=== PATIENT | male | born 1985 | race Hispanic/Latino ===

== ENCOUNTER 2020-04-05 16:03 | Emergency (ER) | payer SELFPAY ==
--- NOTE | 2020-04-06 03:39 | Emergency Department Report ---
ED Alcohol HPI - General Chief Complaint: Alcohol Stated Complaint: DETOX Time Seen by Provider: 04/06/20 03:26 Source: patient Mode of arrival: Ambulatory Limitations: No Limitations - History of Present Illness Initial Comments: Patient is a 34-year-old male that presents emergency room for alcohol detox medical clearance. Patient states he is already been in contact with sober [facility] [place] and they sent him here for clearance. Patient denies any physical complaints. Patient states his last drink was 4 days ago. Patient patient denies tremors. Patient denies fever. Patient denies chest pain shortness of breath. Patient denies fever. Patient complains of skin infection on the right lower extremity. Patient states he is having redness. Patient states the pain is a 4 out of 10. Patient states he had a small acne on his right leg that he picked and then it became infected. Patient states it started this morning. Patient denies fever and chills. Patient denies discharge. Patient denies recent travel. Patient denies recent international travel. Patient denies exposure to the novel coronavirus. Patient denies sick contacts. Patient denies fever and chills. Patient denies cough. Patient denies diarrhea. Patient denies coming in contact with anybody with symptoms of the novel coronavirus. Complaint: desires rehab, medical clearance for det -: days(s) Chronic Alcohol Use: Yes Previous Visits for Alcohol Intoxication?: No Recent Trauma: No Associated Symptoms: denies other symptoms. denies: nausea, vomiting, syncope, diaphoresis, tremors, abdominal pain, hematemesis, melena, depression, suicidality Treatments Prior to Arrival: none - Related Data Previous Rx's Medication Instructions Recorded Last Taken Type Doxycycline Hyclate [Doxycycline 100 mg PO Q12HR 14 Days #28 tab 04/06/20 Unknown Rx Hyclate TAB] Allergies Allergy/AdvReac Type Severity Reaction Status Date / Time No Known Allergies Allergy Verified 04/05/20 16:08 ED Review of Systems ROS: Stated complaint: DETOX Other details as noted in HPI Constitutional: denies: chills, fever Eyes: denies: eye pain, eye discharge, vision change ENT: denies: ear pain, throat pain Respiratory: denies: cough, shortness of breath, wheezing Cardiovascular: denies: chest pain, palpitations Endocrine: no symptoms reported Gastrointestinal: denies: abdominal pain, nausea, diarrhea Genitourinary: denies: urgency, dysuria Musculoskeletal: denies: back pain, joint swelling, arthralgia Skin: as per HPI. denies: rash, lesions Neurological: denies: headache, weakness, paresthesias Psychiatric: denies: anxiety, depression Hematological/Lymphatic: denies: easy bleeding, easy bruising ED Past Medical Hx - Past Medical History Previous Medical History?: Yes Hx Psychiatric Treatment: Yes (alcohol) - Surgical History Past Surgical History?: No - Family History Family history: no significant - Social History Smoking Status: Never Smoker Substance Use Type: Alcohol - Medications Home Medications: Home Medications Medication Instructions Recorded Confirmed Last Taken Type Doxycycline Hyclate [Doxycycline 100 mg PO Q12HR 14 Days #28 tab 04/06/20 Unknown Rx Hyclate TAB] ED Physical Exam - General Limitations: No Limitations General appearance: alert, in no apparent distress - Head Head exam: Present: atraumatic, normocephalic - Eye Eye exam: Present: normal appearance - ENT ENT exam: Present: mucous membranes moist - Neck Neck exam: Present: normal inspection - Respiratory Respiratory exam: Present: normal lung sounds bilaterally. Absent: respiratory distress, wheezes, rales - Cardiovascular Cardiovascular Exam: Present: regular rate, normal rhythm. Absent: systolic murmur, diastolic murmur, rubs, gallop - GI/Abdominal GI/Abdominal exam: Present: soft, normal bowel sounds. Absent: distended, tenderness, guarding - Rectal Rectal exam: Present: deferred - Extremities Exam Extremities exam: Present: normal inspection (Central right lower extremity cellulitis.), full ROM, normal capillary refill. Absent: pedal edema, joint swelling, calf tenderness - Back Exam Back exam: Present: normal inspection - Neurological Exam Neurological exam: Present: alert, oriented X3 - Psychiatric Psychiatric exam: Present: normal affect, normal mood - Skin Skin exam: Present: warm, dry, normal color, other (Right lower extremity, superior right knee/anterior thigh cellulitis noted. Red area noted to with streaking. Area is nonfluctuant, no abscess noted.). Absent: rash ED Course Vital Signs 04/05/20 04/06/20 16:10 04:46 Temperature 98.4 F 98.9 F Pulse Rate 115 H 91 H Respiratory 16 12 Rate Blood Pressure 113/84 130/89 [Left] O2 Sat by Pulse 97 98 Oximetry - Reevaluation(s) Reevaluation #1: Patient will be given clindamycin injection prior to discharge. Patient is medically cleared to go to his alcohol rehab center. I discussed all results and clinical findings with patient. I discussed plan of care with patient. Patient agrees with plan of care. Patient is stable for discharge. Patient will be discharged home. Patient given discharge instructions. Patient voiced understanding of discharge instructions. 04/06/20 05:43 ED Medical Decision Making - Lab Data Result diagrams: 04/06/20 03:43 04/06/20 03:43 - Medical Decision Making Patient is a 34-year-old male that presents emergency room for medical clearance to go to alcohol rehab. Patient desires to go to detox. Patient had labs done for medical clearance and they were essentially unremarkable. Patient only complaint was a skin infection of the right lower extremity. Patient given a injection of clindamycin and will be given oral antibiotics at discharge. Patient will be given his discharge paperwork to go to his rehab facility, [facility]. he is stable for discharge. - Differential Diagnosis Medical clearance, alcoholism, desire detox, cellulitis Critical care attestation.: If time is entered above; I have spent that time in minutes in the direct care of this critically ill patient, excluding procedure time. ED Disposition Clinical Impression: Medical clearance for psychiatric admission, Desire for detoxification, Alcoholism Cellulitis Qualifiers: Site of cellulitis: extremity Site of cellulitis of extremity: lower extremity Laterality: right Qualified Code(s): L03.115 - Cellulitis of right lower limb Disposition: DC-01 TO HOME OR SELFCARE Is pt being admited?: No Does the pt Need Aspirin: No Condition: Stable Instructions: At-Risk Alcohol Use (ED), Abuse of Alcohol (ED), Alcohol Withdrawal (ED), Cellulitis (ED) Additional Instructions: Patient to follow-up with primary care in 2 to 3 days. Patient to be discharged from the ER and go directly to his rehabilitation center. Patient to rest. Patient to increase water. Patient to take Tylenol or ibuprofen as needed for pain. Patient to take meds as directed. Patient to return to the ER if condition worsens, changes or new symptoms arise. Prescriptions: Doxycycline Hyclate [Doxycycline Hyclate TAB] 100 mg PO Q12HR 14 Days #28 tab Referrals: PRIMARY CARE, [Primary Care Provider] - 2-3 Days Time of Disposition: 05:46
[2020-04-06 03:57] LABS: Basophils # (Auto) 0.1 K/mm3 (0.0-0.1); Basophils % (Auto) 0.5 % (0.0-1.8); Eosinophils # (Auto) 0.1 K/mm3 (0.0-0.4); Eosinophils % (Auto) 0.8 % (0.0-4.3); Hematocrit 44.8 % (35.5-45.6); Lymphocytes # (Auto) 2.3 K/mm3 (1.2-5.4); Lymphocytes % (Auto) 20.8 % (13.4-35.0); Mean Corpuscular HGB Conc 34 % (32-34); Mean Corpuscular Volume 87 fl (84-94); Monocytes # (Auto) 1.7 K/mm3 (0.0-0.8); Monocytes % (Auto) 15.7 % (0.0-7.3); Platelet Count 228 K/mm3 (140-440); Red Blood Count 5.17 M/mm3 (3.65-5.03); Red Cell Distribution Width 12.3 % (13.2-15.2)
[2020-04-06 04:21] LABS: Alanine Aminotransferase 34 units/L (7-56); Albumin 4.4 g/dL (3.9-5); BUN/Creatinine Ratio 6; Blood Urea Nitrogen 5 mg/dL (9-20); Hemolysis Index 7
[2020-04-06 05:29] LABS: Bilirubin,Urine NEG (Negative); Blood,Urine NEG (Negative); Color,Urine Yellow (Yellow); Mucus,Urine FEW /HPF; Protein,Urine <15 mg/dL mg/dL (Negative); Urobilinogen,Urine < 2.0 mg/dL (<2.0)
[2020-04-06 05:41] LABS: Amphetamine Screen,Urine Negative; Cannabinoid Screen,Urine Negative; Cocaine Screen,Urine Negative; Methadone Screen,Urine Negative; Opiate Screen,Urine Negative
[2020-04-06] MEDS ORDERED: CLINDAMYCIN 150 MG/ML VIAL 6 ML IM ONE (05:42)
[2020-04-06 06:01] LABS: Benzodiazepines Screen,Urine Positive
[2020-04-06 06:49] VITALS: BP 117/78
== END 2020-04-06 09:20 | disposition home or self-care (01) ==
LOC: ED 16:03
DX: L03.115 Cellulitis of right lower limb (principal); F10.129 Alcohol abuse with intoxication, unspecified; Z04.6 Encounter for general psychiatric examination, requested by authority; Z79.899 Other long term (current) drug therapy
CPT/HCPCS: 36415; 80053; 80307; 80320; 81001; 85025; 96372; G0480

== ENCOUNTER 2022-02-22 10:48 | Emergency (ER) | payer SELFPAY ==
--- NOTE | 2022-02-22 13:03 | Emergency Department Report ---
ED General Adult HPI - General Chief complaint: Medical Clearance Stated complaint: MEDICAL CLEARANCE Time Seen by Provider: 02/22/22 12:26 Source: patient, RN notes reviewed, old records reviewed Mode of arrival: Ambulatory Limitations: No Limitations - History of Present Illness Initial comments: The patient was evaluated in the emergency department for symptoms described in the history of present illness. He/she was evaluated in the context of the global COVID-19 pandemic, which necessitated consideration that the patient might be at risk for infection with the virus that causes COVID-19. Institutional protocols and algorithms that pertain to the evaluation of patients at risk for COVID-19 are in a state of rapid change based on information released by regulatory bodies including the CDC and federal and state organizations. These policies and algorithms were followed during the patient's care in the emergency department. Please note that these policies, procedures and recommendations changed on a rapid basis. This patient is a 36-year-old gentleman who presents to the department today with a request for medical clearance for outpatient detox. He reports that he is depressed. He is not homicidal or suicidal. He reports that he is hungry. He denies physical pain. He denies intentional overdose and hallucinations. -: Gradual Consistency: constant Improves with: none Worsens with: none - Related Data Previous Rx's Medication Instructions Recorded Last Taken Type Multivitamin with Folic Acid [Cvs 400 mcg PO QDAY #30 tablet 02/22/22 Unknown Rx One Daily Essential Tablet] Ondansetron [Zofran Odt] 4 mg PO Q8HR PRN #20 tab.rapdis 02/22/22 Unknown Rx Allergies Allergy/AdvReac Type Severity Reaction Status Date / Time No Known Allergies Allergy Verified 04/05/20 16:08 ED Review of Systems ROS: Stated complaint: MEDICAL CLEARANCE Other details as noted in HPI Comment: All other systems reviewed and negative Psychiatric: anxiety, depression. denies: auditory hallucinations, visual hallucinations, homicidal thoughts, suicidal thoughts ED Past Medical Hx - Past Medical History Hx Psychiatric Treatment: Yes (alcohol) - Social History Smoking Status: Never Smoker Substance Use Type: Alcohol - Medications Home Medications: Home Medications Medication Instructions Recorded Confirmed Last Taken Type Multivitamin with Folic Acid [Cvs 400 mcg PO QDAY #30 tablet 02/22/22 Unknown Rx One Daily Essential Tablet] Ondansetron [Zofran Odt] 4 mg PO Q8HR PRN #20 tab.rapdis 02/22/22 Unknown Rx ED Physical Exam - General Limitations: No Limitations General appearance: alert, anxious - Head Head exam: Present: atraumatic, normocephalic - Eye Eye exam: Present: normal appearance, EOMI. Absent: nystagmus - ENT ENT exam: Present: normal exam, normal orophraynx, mucous membranes moist, normal external ear exam - Neck Neck exam: Present: normal inspection, full ROM. Absent: tenderness, meningismus - Respiratory Respiratory exam: Present: normal lung sounds bilaterally. Absent: respiratory distress, wheezes, rales, rhonchi, stridor, decreased breath sounds - Cardiovascular Cardiovascular Exam: Present: regular rate, normal rhythm, normal heart sounds. Absent: bradycardia, tachycardia, irregular rhythm, systolic murmur, diastolic murmur, rubs, gallop - GI/Abdominal GI/Abdominal exam: Present: soft. Absent: distended, tenderness, guarding, rebound, rigid, pulsatile mass - Rectal Rectal exam: Present: deferred - Extremities Exam Extremities exam: Present: normal inspection, full ROM, other (2+ pulses noted in the bilateral upper and lower extremities. There is no palpable cord. negative Homans sign. Muscular compartments are soft. The pelvis is stable.). Absent: pedal edema, calf tenderness - Back Exam Back exam: Present: normal inspection, full ROM. Absent: tenderness, CVA tenderness (R), CVA tenderness (L), paraspinal tenderness, vertebral tenderness - Neurological Exam Neurological exam: Present: alert, oriented X3, normal gait, other (No facial droop. Tongue midline. Extraocular movements intact bilaterally. Facial sensation intact to light touch in V1, V2, V3 distribution bilaterally. 5 and a 5 strength in 4 extremities. Sensation intact to light touch in 4 extremities.). Absent: motor sensory deficit - Psychiatric Psychiatric exam: Present: anxious. Absent: homicidal ideation, suicidal ideation - Skin Skin exam: Present: warm, dry, intact, normal color. Absent: rash ED Course Vital Signs 02/22/22 02/22/22 10:59 12:29 Temperature 98.3 F Pulse Rate 67 81 Respiratory 16 Rate Blood Pressure 134/84 130/92 [Left] O2 Sat by Pulse 97 99 Oximetry - Reevaluation(s) Reevaluation #1: 02/22/22 13:05 Differential diagnosis, including but not limited to: Encounter for medical screening examination Assessment and plan: 36-year-old gentleman, who is cooperative, eating food at this time, in no acute distress, presenting to the department today with a request for medical clearance. He is clinically sober, has a GCS of 15, and does not meet criteria for 1013 hold or involuntary confinement. He is eating a meal at this time, and in no acute distress. He does report that he is looking to detox from a number of things, including Percocet. Check CBC, CMP, Tylenol and aspirin level. Yoon luke. Discussed plan of care with patient. He is agreeable to the plan of care. Reevaluation #2: 02/22/22 13:37 Laboratory studies unremarkable. Patient resting comfortably in stretcher. May be discharged to follow-up as an outpatient. Does not appear to have an emergent medical condition present today. ED Medical Decision Making - Lab Data Result diagrams: 02/22/22 12:46 02/22/22 12:46 Vital Signs 02/22/22 02/22/22 10:59 12:29 Temperature 98.3 F Pulse Rate 67 81 Respiratory 16 Rate Blood Pressure 134/84 130/92 [Left] O2 Sat by Pulse 97 99 Oximetry Lab Results 02/22/22 02/22/22 02/22/22 Range/Units 12:46 12:46 12:46 WBC 6.4 (4.5-11.0) K/mm3 RBC 5.47 H (3.65-5.03) M/mm3 Hgb 15.3 H (11.8-15.2) gm/dl Hct 45.6 (35.5-45.6) % MCV 83 L (84-94) fl MCH 28 (28-32) pg MCHC 34 (32-34) % RDW 12.1 L (13.2-15.2) % Plt Count 204 (140-440) K/mm3 Sodium 141 (137-145) mmol/L Potassium 4.0 (3.6-5.0) mmol/L Chloride 102.0 (98-107) mmol/L Carbon Dioxide 29 (22-30) mmol/L Anion Gap 14 mmol/L BUN 15 (9-20) mg/dL Creatinine 0.8 (0.8-1.3) mg/dL Estimated GFR > 60 ml/min BUN/Creatinine Ratio 19 % Glucose 88 (75-100) mg/dL Calcium 9.3 (8.4-10.2) mg/dL Total Bilirubin 1.80 H (0.1-1.2) mg/dL AST 24 (5-40) units/L ALT 13 (7-56) units/L Alkaline Phosphatase 80 (35-129) units/L Total Protein 7.0 (6.3-8.2) g/dL Albumin 4.7 (3.9-5) g/dL Albumin/Globulin Ratio 2.0 % Salicylates < 0.3 L (2.8-20.0) mg/dL Acetaminophen (10.0-30.0) ug/mL Plasma/Serum Alcohol (0-0.07) % 02/22/22 02/22/22 Range/Units 12:46 12:46 WBC (4.5-11.0) K/mm3 RBC (3.65-5.03) M/mm3 Hgb (11.8-15.2) gm/dl Hct (35.5-45.6) % MCV (84-94) fl MCH (28-32) pg MCHC (32-34) % RDW (13.2-15.2) % Plt Count (140-440) K/mm3 Sodium (137-145) mmol/L Potassium (3.6-5.0) mmol/L Chloride (98-107) mmol/L Carbon Dioxide (22-30) mmol/L Anion Gap mmol/L BUN (9-20) mg/dL Creatinine (0.8-1.3) mg/dL Estimated GFR ml/min BUN/Creatinine Ratio % Glucose (75-100) mg/dL Calcium (8.4-10.2) mg/dL Total Bilirubin (0.1-1.2) mg/dL AST (5-40) units/L ALT (7-56) units/L Alkaline Phosphatase (35-129) units/L Total Protein (6.3-8.2) g/dL Albumin (3.9-5) g/dL Albumin/Globulin Ratio % Salicylates (2.8-20.0) mg/dL Acetaminophen 5.0 L (10.0-30.0) ug/mL Plasma/Serum Alcohol < 0.01 (0-0.07) % Critical care attestation.: If time is entered above; I have spent that time in minutes in the direct care of this critically ill patient, excluding procedure time. ED Disposition Clinical Impression: Medical clearance for psychiatric admission, Encounter for medical screening examination Disposition: HOME / SELF CARE / HOMELESS Is pt being admited?: No Does the pt Need Aspirin: No Condition: Good Additional Instructions: Please avoid consumption of alcohol, tobacco and smoke products. Please follow- up with an outpatient primary care doctor within the next month. Avoid consumption of opioids, Percocet and narcotics. Take the multivitamin as directed, advance diet as tolerated, and take the nausea medication as directed. The patient is not found to have an emergent medical condition today in the emergency room. The patient may follow-up with an outpatient primary care provider as directed. Please return to the emergency room right away with new pain, worsened pain, valeria ration of pain, projectile vomiting, change in mental status, confusion, inability tolerate liquid feeds, new, worsened or different symptoms not present on the initial emergency room evaluation Prescriptions: Multivitamin with Folic Acid [Cvs One Daily Essential Tablet] 400 mcg PO QDAY #30 tablet Ondansetron [Zofran Odt] 4 mg PO Q8HR PRN #20 tab.rapdis PRN Reason: Nausea Referrals: [facility] [Outside] - 3-5 Days [facility] [Outside] - 3-5 Days
[2022-02-22 13:07] LABS: Hematocrit 45.6 % (35.5-45.6); Hemoglobin 15.3 gm/dl (11.8-15.2); Mean Corpuscular HGB Conc 34 % (32-34); Mean Corpuscular Volume 83 fl (84-94); Platelet Count 204 K/mm3 (140-440); Red Blood Count 5.47 M/mm3 (3.65-5.03); Red Cell Distribution Width 12.1 % (13.2-15.2)
[2022-02-22 13:30] LABS: Alanine Aminotransferase 13 units/L (7-56); Albumin 4.7 g/dL (3.9-5); BUN/Creatinine Ratio 19; Blood Urea Nitrogen 15 mg/dL (9-20); Calcium 9.3 mg/dL (8.4-10.2); Hemolysis Index 15
[2022-02-22 14:16] VITALS: BP 112/77
== END 2022-02-22 14:16 | disposition home or self-care (01) ==
LOC: ED 10:48
DX: Z13.30 Encounter for screening examination for mental health and behavioral disorders, unspecified (principal); Z79.899 Other long term (current) drug therapy
CPT/HCPCS: 36415; 80053; 80320; 85027; 99283; G0480

== ENCOUNTER 2022-05-12 21:09 | Emergency (ER) | payer SELFPAY ==
--- NOTE | 2022-05-13 01:15 | Emergency Department Report ---
ED Psych HPI - General Chief Complaint: Psych Stated Complaint: SI Time Seen by Provider: 05/13/22 01:09 Source: patient, EMS Mode of arrival: Ambulatory - History of Present Illness Initial Comments: 36-year-old male with a history of bipolar and schizophrenia who now presents w ith suicidal ideation saying he does not feel any reason to be alive. When asked specifically he did not have a solid plan. No other modifying or associated factors reported. MD Complaint: suicidal ideation - Related Data Previous Rx's Medication Instructions Recorded Last Taken Type Multivitamin with Folic Acid [Cvs 400 mcg PO QDAY #30 tablet 02/22/22 Unknown Rx One Daily Essential Tablet] Ondansetron [Zofran Odt] 4 mg PO Q8HR PRN #20 tab.rapdis 02/22/22 Unknown Rx Allergies Allergy/AdvReac Type Severity Reaction Status Date / Time No Known Allergies Allergy Verified 04/05/20 16:08 ED Review of Systems ROS: Stated complaint: SI Other details as noted in HPI Comment: All other systems reviewed and negative Psychiatric: suicidal thoughts ED Past Medical Hx - Past Medical History Previous Medical History?: Yes Hx Hypertension: Yes Hx Psychiatric Treatment: Yes (alcohol, depression, anxiety) - Surgical History Past Surgical History?: No - Social History Smoking Status: Current Every Day Smoker Substance Use Type: Alcohol, Methamphetamines - Medications Home Medications: Home Medications Medication Instructions Recorded Confirmed Last Taken Type Multivitamin with Folic Acid [Cvs 400 mcg PO QDAY #30 tablet 02/22/22 Unknown Rx One Daily Essential Tablet] Ondansetron [Zofran Odt] 4 mg PO Q8HR PRN #20 tab.rapdis 02/22/22 Unknown Rx ED Physical Exam - General Limitations: No Limitations General appearance: alert, in no apparent distress - Head Head exam: Present: normal inspection - Eye Eye exam: Present: normal appearance Pupils: Present: normal accommodation - ENT ENT exam: Present: normal exam, normal orophraynx, mucous membranes moist - Neck Neck exam: Present: normal inspection, full ROM. Absent: tenderness - Respiratory Respiratory exam: Present: normal lung sounds bilaterally. Absent: respiratory distress, accessory muscle use - Cardiovascular Cardiovascular Exam: Present: regular rate, normal rhythm, normal heart sounds - GI/Abdominal GI/Abdominal exam: Present: soft, normal bowel sounds. Absent: distended, tenderness - Extremities Exam Extremities exam: Present: normal inspection, full ROM, normal capillary refill. Absent: tenderness, pedal edema - Back Exam Back exam: Absent: tenderness - Neurological Exam Neurological exam: Present: alert, oriented X3 - Psychiatric Psychiatric exam: Present: normal affect, anxious - Skin Skin exam: Present: warm, normal color ED Course Vital Signs 05/12/22 05/13/22 05/13/22 21:15 01:07 09:21 Temperature 98.7 F Pulse Rate 80 Respiratory 18 Rate Blood Pressure 104/68 Blood Pressure [Left] O2 Sat by Pulse 98 100 99 Oximetry 05/13/22 09:22 Temperature 98.5 F Pulse Rate 87 Respiratory 18 Rate Blood Pressure Blood Pressure 128/82 [Left] O2 Sat by Pulse 99 Oximetry ED Medical Decision Making - Lab Data Result diagrams: 05/13/22 01:09 05/13/22 01:09 - Medical Decision Making Here with depression and feeling and suicidal thoughts--differential diagnosis, including but not limited to: Encounter for behavioral health screening examination, encounter for medical screening examination--Due to these will go ahead and other routine labs studies including CBC, CMP and UA with UDS and thyroid profile in anticipation for mental health evaluation. Assessment and plan: here with concern with depressive feeling and suicidal eric ation --but noted with reassuring vital signs, in no acute distress, who is cooperative, ANO x3, not homicidal but suicidal. At this point in time, this patient is cleared medically for psychiatry evaluation and recommendation. I will go ahead and order a 1013. He has not demonstrated any witnessed behavior here in the ED that would be consistent with acute decompensated psychosis. I have ordered mental health evaluation. Will go ahead and order typical laboratory studies in anticipation of mental health requests. Laboratory studies are reviewed and are unremarkable at this time. Awaiting mental health consultation and evaluation. Ultimate disposition as per mental health team. At this point in time, this patient does not appear to have an immediate medical contraindication to psychiatric admission, evaluation, consultation and placement. Patient has had his 1013 filled out by myself. Holding orders initiated. COVID swab ordered in anticipation of psychiatric placement. As needed medications are ordered. Patient remained suitable at this time for psychiatric placement, consultation and disposition. He does not appear to have an emergent medical condition present at this time. Critical care attestation.: If time is entered above; I have spent that time in minutes in the direct care of this critically ill patient, excluding procedure time. ED Disposition Clinical Impression: Suicide ideation Disposition: 01 HOME / SELF CARE / HOMELESS Is pt being admited?: No Does the pt Need Aspirin: No Condition: Stable Instructions: Persistent Depressive Disorder, Adult Additional Instructions: Professional and Agency Contacts To help Resolve Crises(12/04) MD Crisis Line: Suicide Prevention Line: Crisis Text Line: Text START to [phone] Emergency: 911 Outpatient COMMUNITY Behavioral Health Resources: [place]: [facility] [address] [place], [place] [address] [place]: [facility] [address] [place] [address] [place]: [facility] - [address] [place] [address] Wednesday thru Wednesday - 8am - 5pm [place]: [facility] Address: [address] [place] [address] [place]: [facility] Address: [address] [place] [address] Wednesday thru Wednesday- 7am-2pm [facility] Address: [address] [place] [address] Wednesday thru Wednesday: 8:30AM-5PM In case of an emergency, please contact the following numbers: MD Crisis and Access Line: Number: Crisis Text Line: (Text START) Number: 299749 Suicide Prevention Line: Number: Emergency Number: 911 SUBSTANCE ABUSE PROGRAMS: [facility] [place]: Location: [place], [place] [employer] Address: [address] [place] [address] [facility]: Address: [address] [place] [address] [facility]: Address: [address] [place] [id number] [facility]: Address: [address] [place] [address] [facility] Address: [address] [place] [address]. Please contact above numbers to attempt placement into free based program. Medicaid Programs: [facility]: Address: [address] [place] [address] [facility]: Address: [address] [place] [id number] Referrals: PRIMARY CAREMD [Primary Care Provider] - 3-5 Days
[2022-05-13 01:21] LABS: Amphetamine Screen,Urine PRESUMPTIVE POSITIVE; Benzodiazepines Screen,Urine PRESUMPTIVE NEGATIVE; Cannabinoid Screen,Urine PRESUMPTIVE NEGATIVE; Cocaine Screen,Urine PRESUMPTIVE NEGATIVE; Methadone Screen,Urine PRESUMPTIVE NEGATIVE; Opiate Screen,Urine PRESUMPTIVE NEGATIVE
[2022-05-13 01:27] LABS: Basophils % (Auto) 0.3 % (0.0-1.8); Eosinophils # (Auto) 0.2 K/mm3 (0.0-0.4); Eosinophils % (Auto) 2.1 % (0.0-4.3); Hematocrit 45.7 % (35.5-45.6); Hemoglobin 14.8 gm/dl (11.8-15.2); Lymphocytes % (Auto) 32.5 % (13.4-35.0); Mean Corpuscular HGB Conc 32 % (32-34); Mean Corpuscular Volume 81 fl (84-94); Monocytes # (Auto) 0.7 K/mm3 (0.0-0.8); Monocytes % (Auto) 7.7 % (0.0-7.3); Platelet Count 266 K/mm3 (140-440); Red Blood Count 5.68 M/mm3 (3.65-5.03); Red Cell Distribution Width 12.8 % (13.2-15.2)
[2022-05-13 01:28] LABS: Color,Urine Yellow (Yellow)
[2022-05-13 01:33] LABS: Granular Casts,Urine 3 /LPF; Hyaline Casts,Urine 3 /LPF; Mucus,Urine FEW /HPF
[2022-05-13 01:40] LABS: BUN/Creatinine Ratio 20; Blood Urea Nitrogen 18 mg/dL (9-20); Calcium 10.1 mg/dL (8.4-10.2); Hemolysis Index 12
[2022-05-13 01:41] LABS: Albumin 5.2 g/dL (3.9-5); Bilirubin,Direct 0.3 mg/dL (0-0.2)
[2022-05-13 09:23] VITALS: BP 128/82
--- NOTE | 2022-05-13 10:55 | Consultation ---
History of Present Illness - Reason for Consult Consult date: 05/13/22 Reason for consult: mental health evaluation - History of Present Psychiatric Illness ED NOTE: 36-year-old male with a history of bipolar and schizophrenia who now presents with suicidal ideation saying he does not feel any reason to be alive. When asked specifically he did not have a solid plan. No other modifying or associated factors reported. The patient is a 36 year-old male with history of schizophrenia, bipolar, and polysubstance abuse who presented to the ED with suicidal ideation without plan. The patient was seen today and he is calm and cooperative. The patient reports history of multiple detox and rehab admissions. He reports that he started using alcohol at age 14 and consumes a case of beer per day. Sobriety period of 1 year. He reports using meth on and off since age 16. He snorts "1 gram per week." He reports triggers such as anxiety and depression. The patient endorses depression today and rates it 9/10. Also reports having non-commanding auditory hallucinations "ringing in my ears." He denies SI HI VH. PAST PSYCHIATRIC HISTORY: Diagnoses: Schizophrenia, Bipolar, polysubstance abuse Suicide attempts or Self-harm behavior: Denies Prior psychiatric hospitalizations: Yes Substance Abuse history: alcohol, meth Previous psychiatric medications tried: Unable to recall Outpatient treatment: Unknown PAST MEDICAL HISTORY: None reported Family Psychiatric History: None reported or documented SOCIAL HISTORY Marital Status: Living Arrangements: Homeless Employment Status: Unemployed Access to guns/weapons: Denies Education: GED History of Abuse: No Legal History: Unknown REVIEW OF SYSTEMS Constitutional: Negative for weight loss ENT: Negative for stridor Respiratory: Negative for cough or hemoptysis All other systems reviewed and are negative MENTAL STATUS EXAMINATION General Appearance and Behavior: Age appropriate, good hygiene, wearing appropriate clothes, cooperative Cooperation: cooperative Psychomotor Behavior: Normal Mood: depressed Affect and affective range:congruent Thought Process:Goal directed Thought Content: Reality oriented Speech: Normal Intellectual Functioning: Average Suicidal Ideation: Denies Homicidal Ideation: Denies Hallucination: Auditory hallucinations, non-commanding Impulse Control:Limited Insight and Judgment: limited insight and poor judgment Memory: Intact Attention:Attentive Orientation: Alert and oriented Diagnoses: (1) Hx of Bipolar, Schizophrenia (2) Polysubstance abuse Treatment Plan: Continuing home meds Patient should be compliant with medications and not to use drugs and not to drink alcohol. PSYCHOTHERAPY: Supportive psychotherapy provided MEDICAL: Per primary team DELIRIUM PRECAUTIONS: Please re-orient patient frequently, keep lights on during the day, and minimize benzodiazepines and opiates as these medications could worsen patient's confusion. ADHESIVE PRIMER: Per medical team DISPOSITION: Do not recommend acute inpatient psychiatric hospitalization at this time. FOLLOW-UP: Will sign off. Thank you for the consult. Please contact with any questions and/or concerns. Case staffed with Dr. Pena Medications and Allergies Medications and Allergies Allergies Allergy/AdvReac Type Severity Reaction Status Date / Time No Known Allergies Allergy Verified 04/05/20 16:08 Home Medications Medication Instructions Recorded Confirmed Last Taken Type Multivitamin with Folic Acid [[facility] 400 mcg PO QDAY #30 tablet 02/22/22 Unknown Rx One Daily Essential Tablet] Ondansetron [Zofran Odt] 4 mg PO Q8HR PRN #20 tab.rapdis 02/22/22 Unknown Rx Mental Status Exam - Vital signs Last Vital Signs Temp 98.5 F 05/13/22 09:22 Pulse 87 05/13/22 09:22 Resp 18 05/13/22 09:22 BP 128/82 05/13/22 09:22 Pulse Ox 99 05/13/22 09:22 Results Result Diagrams: 05/13/22 01:09 05/13/22 01:09 Abnormal lab results 05/13/22 05/13/22 05/13/22 Range/Units 01:09 01:09 01:09 RBC 5.68 H (3.65-5.03) M/mm3 Hct 45.7 H (35.5-45.6) % MCV 81 L (84-94) fl MCH 26 L (28-32) pg RDW 12.8 L (13.2-15.2) % [place] % (Auto) 7.7 H (0.0-7.3) % Glucose 72 L (75-100) mg/dL Total Bilirubin (0.1-1.2) mg/dL Direct Bilirubin (0-0.2) mg/dL Albumin (3.9-5) g/dL Salicylates < 0.3 L (2.8-20.0) mg/dL Acetaminophen (10.0-30.0) ug/mL 05/13/22 05/13/22 Range/Units 01:09 01:09 RBC (3.65-5.03) M/mm3 Hct (35.5-45.6) % MCV (84-94) fl MCH (28-32) pg RDW (13.2-15.2) % [place] % (Auto) (0.0-7.3) % Glucose (75-100) mg/dL Total Bilirubin 1.30 H (0.1-1.2) mg/dL Direct Bilirubin 0.3 H (0-0.2) mg/dL Albumin 5.2 H (3.9-5) g/dL Salicylates (2.8-20.0) mg/dL Acetaminophen 5.0 L (10.0-30.0) ug/mL All other labs normal.
== END 2022-05-13 13:52 | disposition home or self-care (01) ==
LOC: ED 21:09
DX: R45.851 Suicidal ideations (principal); Z20.822 Contact with and (suspected) exposure to COVID-19; F17.200 Nicotine dependence, unspecified, uncomplicated; F10.20 Alcohol dependence, uncomplicated; I10 Essential (primary) hypertension
CPT/HCPCS: 36415; 80048; 80076; 80307; 81001; 85025; 99284; U0003; 80320; G0480